=== PATIENT | male | born 1960 | race Caucasian/White ===

== ENCOUNTER → 2016-11-21 | Outpatient (CLI) | payer OTHER ==
[~2016-11-21] MED LIST: ACETAMINOPHEN325 MG PO; COMBIVENT INH14.7 G1 INH; DICLOFENAC PO; FLEXERIL10 MG PO; IBUPROFEN PO; LISINOPRIL20 MG PO; NICOTINE TRANSD21 MG EXT; PEN-VEE K PO; PEPCID AC20 M2 PO; PHENERGAN25 M1 DOB; PHENERGAN25 MG PO; PREDNISONE PO; PRILOSEC20 M1 PO; PRILOSEC40 MG PO; PROTONIX PO; RANITIDINE HCL150 M1 PO; STOMACH PILL PO; SYMBICORT INH; SYMBICORT80 INH; THIAMINE HCL100 MG PO; ULTRAM PO; VENTOLIN HFA; ZESTRIL5 MG PO; ZOFRAN PO; ZOLOFT50 MG PO
== END | disposition home or self-care (01) ==
LOC: CRC 08:03
DX: J44.9 Chronic obstructive pulmonary disease, unspecified (principal)
CPT/HCPCS: 94060; 94726; 94729